=== PATIENT | female | born 1985 | race Caucasian/White ===

== ENCOUNTER → 2016-11-29 | Outpatient (CLI) | payer BC ==
[~2016-11-29] MED LIST: PRENTAB26 PO
--- NOTE | 2016-11-29 11:31 | DIAGNOSTIC IMAGING REPORT ---
ULTRASOUND ABDOMINAL WALL CLINICAL HISTORY: Umbilical hernia. COMPARISON STUDY: No priors. FINDINGS: Real-time, grayscale, and color flow sonography of the periumbilical abdominal wall is performed to assess for hernia. There is a fat-containing umbilical hernia identified. This measures up to 3.0 cm. No bowel is seen within the hernia sac. This was not reducible during the examination. IMPRESSION: There is a fat-containing umbilical hernia as detailed above. Electronically signed by: Ulices Brooke M.D. 11/29/2016 11:30 AM Dictated Date/Time: 11/29/2016 11:29 AM
== END | disposition home or self-care (01) ==
LOC: C.ULTR 10:45
PROVIDERS: ATTEND Family Medicine
DX: K42.9 Umbilical hernia without obstruction or gangrene (principal)

== ENCOUNTER → 2017-01-16 | Outpatient (CLI) | payer BC | END | disposition home or self-care (01) | LOC: C.PAPS 08:59 | PROVIDERS: ATTEND Obstetrics & Gynecology | DX: Z01.419 Encounter for gynecological examination (general) (routine) without abnormal findings (principal) ==

== ENCOUNTER → 2017-10-14 | Outpatient (CLI) | payer BC | END | disposition home or self-care (01) | LOC: C.LAB 17:30 | PROVIDERS: ATTEND Internal Medicine | DX: R39.9 Unspecified symptoms and signs involving the genitourinary system (principal) ==